=== PATIENT | male | born 1965 | race Caucasian/White ===

== ENCOUNTER 2018-07-19 08:45 | Day surgery (SDC) | payer MEDICAID ==
[~2018-07-19] VITALS: Ht 172.7 cm; Wt 82.1 kg
[2018-07-19 09:58] VITALS: BP 113/73; PULSE 68; RESP 18; Ht 172.7 cm; Wt 82.1 kg
[2018-07-19] MEDS ORDERED: protonix (10:07)
--- NOTE | 2018-07-19 11:06 | PREAC ---
Date/Time of Note Date/Time of Note DATE: 07/19/18 TIME: 11:05 Anesthesia Eval and Record Evaluation Time Pre-Procedure Interview DATE: 07/19/18 TIME: 11:05 Age 52 Sex male NPO: 8 hrs Preoperative diagnosis abdominal pain, screening Planned procedure EGD, colonoscopy Past Medical History Past Medical History: Includes GI: GERD Recreational drugs: Marijuana Surgery & Anesthesia Issues No known issue Meds Anticoagulation: No Beta Angel within 24 hr: No Reason Beta Angel not given: Pt. not on B-Angel Reported Medications [protonix] No Conflict Check 07/19/18 Meds reviewed: Yes Allergies Coded Allergies: No Known Allergy (Unverified , 07/19/18) Allergies Reviewed: Yes Labs/Studies Labs Reviewed: Reviewed by anesthesiologist test: N/A Pre-procedure Exam Last vitals Vital Signs Date Temp Pulse Resp B/P (MAP) Pulse Ox O2 O2 Flow FiO2 Time Delivery Rate 07/19/18 98.0 68 18 113/73 98 Room Air 09:58 (86) Airway: Adequate mouth opening, Adequate thyromental dist Mallampati: Mallampati II Teeth: Normal Lung: Normal Heart: Normal ASA Physical Status ASA physical status: 1 Emergency: None Planned Anesthetic General/MAC: Mask Planned Pain Management Parenteral pain med Pre-operative Attestations Prior to commencing anesthesia and surgery, the patient was re-evaluated, there was verification of: *The patient's identity *The results of appropriate recent lab work and preoperative vital signs *The above evaluation not changing prior to induction *Anesthetic plan, risk benefits, alternative and complications discussed with patient/family; questions answered; patient/family understands, accepts and wishes to proceed. ALESSANDRA MINOR MD Jul 19, 2018 11:06
[2018-07-19] MEDS ORDERED: MIDAZOLAM 1 MG/ML 2 ML INJ ONE (11:09)
[2018-07-19] MEDS ORDERED: PROPOFOL 60 ML ONE (11:09)
[2018-07-19] MEDS ORDERED: LIDOCAINE 2% (SDV) 5 ML INJ ONE (11:09)
[2018-07-19] MEDS ORDERED: ONDANSETRON 4 MG INJ IV PRN (11:30)
[2018-07-19] MEDS ORDERED: HYDROmorphONE 1 MG/5 ML IV SYRINGE IV PRN (11:30)
--- NOTE | 2018-07-19 11:59 | PAC ---
Date/Time of Note Date/Time of Note DATE: 07/19/18 TIME: 11:59 Post-Anesthesia Notes Post-Anesthesia Note Last documented vital signs Vital Signs Date Temp Pulse Resp B/P (MAP) Pulse Ox O2 O2 Flow FiO2 Time Delivery Rate 07/19/18 98.0 68 18 113/73 98 Room Air 09:58 (86) Activity: WNL Respiratory function: WNL Cardiovascular function: WNL Mental status: Baseline Pain reasonably controlled: Yes Hydration appropriate: Yes Nausea/Vomiting absent: Yes Comments BP: 110/65 HR: 80 RR: 15 T: 98 SaO2: 99% ALESSANDRA MINOR MD Jul 19, 2018 11:59
[2018-07-19 12:17] VITALS: BP 118/74; PULSE 73; RESP 18
== END 2018-07-19 15:16 | disposition home or self-care (01) ==
LOC: GIL 08:45
PROVIDERS: ATTEND Internal Medicine Gastroenterology
DX: Z12.11 Encounter for screening for malignant neoplasm of colon (principal); K29.50 Unspecified chronic gastritis without bleeding; D12.5 Benign neoplasm of sigmoid colon; K64.8 Other hemorrhoids
CPT/HCPCS: 43239; 45385; 88305; 88312; J2250; Z7610